=== PATIENT | female | born 1965 | race Hispanic/Latino ===

== ENCOUNTER 2018-01-15 14:48 | Outpatient (RCR) | payer OTHER ==
[~2018-01-15 14:48] MED LIST: COZAAR25 MG PO; CYCLOBENZAPRINE10 MG PO; METFORMIN HCL500 MG PO; NAPROXEN500 MG PO; NORCO 5-325 TA1 EACH PO; NORCO 7.5-3251 EACH PO
== END 2018-01-19 ==
LOC: PT 14:48
PROVIDERS: ATTEND Internal Medicine
DX: M54.12 Radiculopathy, cervical region (principal); M75.02 Adhesive capsulitis of left shoulder; M25.512 Pain in left shoulder; M25.612 Stiffness of left shoulder, not elsewhere classified; M62.81 Muscle weakness (generalized)
CPT/HCPCS: 97162; G8984; G8985

== ENCOUNTER 2018-02-13 13:00 | Outpatient (RCR) | payer OTHER | END 2018-02-18 | LOC: PT 13:00 | PROVIDERS: ATTEND Internal Medicine | DX: M75.02 Adhesive capsulitis of left shoulder (principal); M25.512 Pain in left shoulder; M25.612 Stiffness of left shoulder, not elsewhere classified; M62.81 Muscle weakness (generalized) | CPT/HCPCS: 97010 ×2; 97110 ×7; 97139; 97140; G8985; G8986 ==

== ENCOUNTER 2021-08-30 08:36 | Emergency (ER) | payer SELFPAY ==
[~2021-08-30] VITALS: Ht 162.6 cm; Wt 86.2 kg
[2021-08-30] MEDS ORDERED: KETOROLAC TROMETHAMINE 30 MG/ML VIAL IM STA (09:29)
[2021-08-30] MEDS ORDERED: KETOROLAC TROMETHAMINE 30 MG/ML VIAL ONE (09:42)
== END 2021-08-30 09:37 | disposition home or self-care (01) ==
LOC: ER 09:00
DX: M25.511 Pain in right shoulder (principal); M54.2 Cervicalgia; I10 Essential (primary) hypertension; E11.9 Type 2 diabetes mellitus without complications; M54.9 Dorsalgia, unspecified; G89.29 Other chronic pain
CPT/HCPCS: 99282; J1885